=== PATIENT | male | born 1950 | race Caucasian/White ===

== ENCOUNTER 2018-09-04 10:19 | Emergency (ER) | payer MEDICARE, MEDICAID ==
--- NOTE | 2018-09-04 10:37 | ED ---
Lower Extremity - HPI Summary HPI Summary: The patient is a 68 y/o M presenting to [facility] accompanied by with a chief complaint of sudden onset intermittent pains the left heel and dorsal foot starting five days ago. He states that the pain is a cramping that is rated 10/ 10 in severity when present. The pain usually lasts for about a day and then resolves itself. The pain is aggravated with weight-bearing, but he is able to ambulate. There is no known injury. He additionally reports that the foot was cyanotic yesterday, but that has since resolved. Former smoker quit one month ago but reports the starts again intermittently and has been smoking for the last 60 years. - History of Current Complaint Chief Complaint: EDExtremityLower Stated Complaint: FOOT PAIN PER PT Time Seen by Provider: 09/04/18 10:30 Hx Obtained From: Patient Mechanism Of Injury: Unknown Onset of Pain: Days - five days Onset/Duration: Still Present Severity Initially: Moderate Severity Currently: Moderate Pain Intensity: 10 Pain Scale Used: 0-10 Numeric Timing: Intermittent, Lasting Hours Character Of Pain: Spasmodic - cramping Associated Signs And Symptoms: Positive: Other - cyanosis of left foot (resolved ) Aggravating Factor(s): Weight Bearing Alleviating Factor(s): Rest Able to Bear Weight: Yes - Allergies/Home Medications Allergies/Adverse Reactions: Allergies Allergy/AdvReac Type Severity Reaction Status Date / Time No Known Allergies Allergy Verified 09/04/18 10:25 PMH/Surg Hx/FS Hx/Imm Hx Endocrine/Hematology History: Reports: Hx Diabetes Cardiovascular History: Reports: Hx Coronary Artery Disease, Hx Hypercholesterolemia, Hx Myocardial Infarction Denies: Hx Hypertension, Hx Pacemaker/ICD GI History: Reports: Other GI Disorders - hiatal hernia History: Reports: Hx Benign Prostatic Hyperplasia Denies: Hx Renal Disease Musculoskeletal History: Reports: Hx Arthritis - KNEES, Hx Orthopedic Injury - left shoulder dysfunction Sensory History: Denies: Hx Hearing Aid Psychiatric History: Denies: Hx Panic Disorder - Surgical History Surgery Procedure, Year, and Place: LOWER BACK SURGERY-2009; CHOLECYSTECTOMY 2 YRS AGO; BOTH SHOULDER TORN ROTATOR CUFF; Lt LEG-REPAIR & GRAFTING- SEVERED OPEN - A CHILD. 03/01 RIGHT KNEE REPLACEMENT Hx Anesthesia Reactions: No Infectious Disease History: No Infectious Disease History: Denies: Traveled Outside the [place] in Last 30 Days - Family History Known Family History: Negative: Hypertension - Social History Alcohol Use: Rare Alcohol Amount: 6 PK BEER/MONTH Substance Use Type: Reports: None Hx Tobacco Use: Yes Smoking Status (MU): Former Smoker Type: Cigarettes Do You Chew or Dip Tobacco: No Amount Used/How Often: LESS THEN 1PPD 40 + YEARS Have You Smoked in the Last Year: Yes Review of Systems Positive: Other - pain in left foot at dorsal end and heel, pain with weight- bearing but tolerated Positive: Other - cyanosis of left foot (resolved) All Other Systems Reviewed And Are Negative: Yes Physical Exam - Summary Physical Exam Summary: VITAL SIGNS: Reviewed. GENERAL: Patient is a well-developed and nourished male who is lying comfortable in the stretcher. Patient is not in any acute respiratory distress. HEAD AND FACE: No signs of trauma. No ecchymosis, hematomas or skull depressions. No sinus tenderness. EYES: PERRLA, EOMI x 2, No injected conjunctiva, no nystagmus. EARS: Hearing grossly intact. Ear canals and tympanic membranes are within normal limits. MOUTH: Oropharynx within normal limits. NECK: Supple, trachea is midline, no adenopathy, no JVD, no carotid bruit, no c- spine tenderness, neck with full ROM. CHEST: Symmetric, no tenderness at palpation LUNGS: Clear to auscultation bilaterally. No wheezing or crackles. CVS: Regular rate and rhythm, S1 and S2 present, no murmurs or gallops appreciated. ABDOMEN: Soft, non-tender. No signs of distention. No rebound no guarding, and no masses palpated. Bowel sounds are normal. EXTREMITIES: FROM in all major joints, no edema, no cyanosis or clubbing. Tenderness in dorsal aspect of left foot and posterior aspect of left heel. Good pulses, good capillary refill. NEURO: Alert and oriented x 3. No acute neurological deficits. Speech is normal and follows commands. SKIN: Dry and warm. No erythema, No swelling. Triage Information Reviewed: Yes Vital Signs On Initial Exam: Initial Vitals Temp Pulse Resp BP Pulse Ox 97.7 F 83 19 146/110 97 09/04/18 10:21 09/04/18 10:21 09/04/18 10:21 09/04/18 10:21 09/04/18 10:21 Vital Signs Reviewed: Yes Diagnostics - Vital Signs Vital Signs Temp Pulse Resp BP Pulse Ox 05/22/19 10:21 97.7 F 83 19 146/110 97 - Laboratory Result Diagrams: 09/04/18 12:22 09/04/18 12:22 Lab Statement: Any lab studies that have been ordered have been reviewed, and results considered in the medical decision making process. - Radiology L Foot XR Radiology Interpretation Completed By: Radiologist Summary of Radiographic Findings: Soft tissue swelling. ED physician has reviewed this report. L Ankle XR Radiology Interpretation Completed By: Radiologist Summary of Radiographic Findings: Soft tissue swelling. No fracture seen. ED physician has reviewed this report. Re-Evaluation - Re-Evaluation First Eval Re-Evaluation Time: 13:15 Change: Unchanged Comment: I spoke with the patient concerning imaging results and discharge home. Lower Extremity Course/Dx - Course Assessment/Plan: The patient is a 68 y/o M presenting to [facility] accompanied by with a chief complaint of sudden onset intermittent pains the left heel and dorsal foot starting five days ago. He states that the pain is a cramping that is rated 10/10 in severity when present. The pain usually lasts for about a day and then resolves itself. There is no known injury. He additionally reports that the foot was cyanotic yesterday, but that has since resolved. Former smoker quit one month ago but reports the starts again intermittently and has been smoking for the last 60 years. Past medical history significant for [place], CAD, insulin-dependent diabetes, Oretic stenosis, carotid stenosis, GERD , chronic back pain, right foot drop. X-ray of the left ankle impression: Soft tissue swelling, no fracture seen. X-ray of the left foot impression: Soft tissue swelling. - Diagnoses Differential Diagnosis/HQI/PQRI: Positive: Bursitis, Cellulitis, Sprain, Strain Provider Diagnoses: Cellulitis Discharge - Sign-Out/Discharge Documenting (check all that apply): Patient Departure - Patient will be discharged home. Patient Received Moderate/Deep Sedation with Procedure: No - Discharge Plan Condition: Stable Disposition: HOME Prescriptions: Sulfamethox/Trimethoprim DS* [Bactrim DS 800/160 TAB*] 1 tab PO BID #14 tab Patient Education Materials: Cellulitis (ED), Arthralgia (ED) Referrals: Josiane Mills MD [Primary Care Provider] - 3 Days Additional Instructions: Please take medication as prescribed. FOLLOW UP WITH YOUR PRIMARY CARE PROVIDER WITHIN ONE WEEK FOR HIGH BLOOD PRESSURE NOTED TODAY. RETURN TO THE ED FOR ANY WORSENING OR NEW SYMPTOMS. - Billing Disposition and Condition Condition: STABLE Disposition: Home - Attestation Statements Document Initiated by Raul: Yes Documenting Scribe: Tegan Cummins Provider For Whom Raul is Documenting (Include Credential): Dr. Himanshu Kimbrough MD Scribe Attestation: ITegan scribed for Dr. Himanshu Kimbrough MD on 09/05/18 at 2123. Scribe Documentation Reviewed: Yes Provider Attestation: The documentation as recorded by the Tegan mejia accurately reflects the service I personally performed and the decisions made by me, Dr. Himanshu Kimbrough MD Status of Scribe Document: Viewed
[2018-09-04] MEDS ORDERED: oxyCODONE/Acetamin 5/325 MG* TAB PO ONE (10:38)
[2018-09-04 12:36] LABS: ABS Basophils 0.2 10^3/ul (0-0.2); ABS Eosinophils 0.2 10^3/ul (0-0.6); ABS Lymphocytes 1.8 10^3/ul (1.0-4.8); ABS Monocytes 0.9 10^3/ul (0-0.8); ABS Neutrophils 9.6 10^3/ul (1.5-7.7); Eosinophil % 1.8 %; Hematocrit 48 % (42-52); Hemoglobin 16.5 g/dL (14.0-18.0); Lymphocyte % 14.1 %; Mean Corpuscular HGB Conc 34 g/dL (31-36); Mean Corpuscular Hemoglobin 29 pg (27-31); Mean Corpuscular Volume 85 fL (80-94); Mean Platelet Volume 8.1 fL (7.4-10.4); Nucleated Red Blood Cells % 0.1; Platelet Count 239 10^3/uL (150-450); Red Blood Count 5.62 10^6 /uL (4.18-5.48); Red Cell Distribution Width 14 % (10.5-15); White Blood Count 12.7 10^3/uL (3.5-10.8)
[2018-09-04] MEDS ORDERED: Sulfamethox/Trimethoprim DS 800/160* TAB PO ONE (12:44)
[2018-09-04 12:56] LABS: Albumin 4.3 g/dL (3.2-5.2); Albumin/Globulin Ratio 1.4 (1-3); BUN/Creatinine Ratio 19.6 (8-20); C Reactive Protein 35.74 mg/L (<8.01); EGFR Non-African American 81.8 (>60); Potassium 4.9 mmol/L (3.5-5.0); Total Bilirubin 0.9 mg/dL (0.2-1.0); Total Protein 7.3 g/dL (6.4-8.9)
[2018-09-04 13:13] VITALS: BP 115/80
== END 2018-09-04 13:12 | disposition home or self-care (01) ==
LOC: ED 10:19
DX: L03.116 Cellulitis of left lower limb (principal); E11.9 Type 2 diabetes mellitus without complications; I25.10 Atherosclerotic heart disease of native coronary artery without angina pectoris; E78.00 Pure hypercholesterolemia, unspecified; I25.2 Old myocardial infarction; N40.0 Benign prostatic hyperplasia without lower urinary tract symptoms; Z87.891 Personal history of nicotine dependence; Z79.4 Long term (current) use of insulin
CPT/HCPCS: 36415; 80053; 85025; 86140; 99282; A9270-GY